=== PATIENT | female | born 1975 | race Caucasian/White ===

== ENCOUNTER → 2022-03-11 | Outpatient (CLI) | payer OTHER ==
[~2022-03-11] MED LIST: Ativan1 MG PO; BLOOD PRESSURE MED; CYCL10 PO; DIPATR PO; HYDACE5 PO; HYDCHL25 PO; LEVSOD100; LEVSOD100 PO; LEVSOD175; LORA2 PO; Lomotil Tablet1 EACH PO; METR500 PO; NAPR500 PO; Norco 5-325 Ta1 EACH PO; OMEP20ER PO; ONDA4 PO; OXYACE5T PO; PRED20 PO; PROM25 PO; RANI150 PO; RXOXYACE PO; STOOL; Zofran Odt4 MG SL; [UNRECOGNIZED DRUG - OTHER]
== END | disposition home or self-care (01) ==
LOC: LAB SHORT 20:25 → LAB 20:25
DX: J03.90 Acute tonsillitis, unspecified (principal)
CPT/HCPCS: 87081

== ENCOUNTER 2023-04-01 15:53 | Emergency (ER) | payer OTHER ==
[~2023-04-01] VITALS: Ht 162.6 cm; Wt 79.4 kg
[2023-04-01 16:02] VITALS: BP 151/97
[2023-04-01] MEDS ORDERED: EUTHYROX150 MC1 PO (16:04)
[2023-04-01] MEDS ORDERED: HYDCHL25 PO (16:04)
== END 2023-04-01 16:45 | disposition home or self-care (01) ==
LOC: ER 15:53
DX: S01.01XA Laceration without foreign body of scalp, initial encounter (principal); W01.198A Fall on same level from slipping, tripping and stumbling with subsequent striking against other object, initial encounter; I10 Essential (primary) hypertension; E03.9 Hypothyroidism, unspecified; Z88.0 Allergy status to penicillin; Z79.899 Other long term (current) drug therapy; Z87.891 Personal history of nicotine dependence
CPT/HCPCS: 12002; 99282-25

== ENCOUNTER → 2024-04-30 | Outpatient (CLI) | payer OTHER ==
[~2024-04-30] MED LIST changes: +EUTHYROX150 MC1 PO
[2024-04-30 18:04] LABS: Follicle Stimulating Hormone 51.5 mIU/ml; Luteinizing Hormone 32.1 mIU/ml
== END ==
LOC: LAB 13:53 → LAB SHORT 13:53
PROVIDERS: Registered Nurse Community Health
DX: N95.1 Menopausal and female climacteric states (principal)
CPT/HCPCS: 83001; 83002